=== PATIENT | female | born 1985 | race Caucasian/White ===

== ENCOUNTER 2019-12-04 11:10 | Emergency (ER) | payer SELFPAY ==
--- OUTSIDE RECORDS SUMMARY | 2019-12-04 11:12 | XMS REPORT | Summary of Care ---
:1985 Author Organization [facility] Address [address] [place] [id number] Care Team Providers Name Role Phone Pcp, Does Not Have A Primary Care Provider Reason for Visit Reason Comments UPPER RESPIRATORY INFECTION Encounter Details Date Type Department Care Team Description 10/01/2019 Telephone [facility] Family [facility], Acute Care UPPER RESPIRATORY Medicine - [facility] INFECTION [address] [place] [phone] Allergies No Known Allergiesdocumented as of this encounter (statuses as of 10/01/2019) Medications No known medicationsdocumented as of this encounter (statuses as of 10/01/2019) Active Problems Problem Noted Date Bipolar I disorder, most recent episode depressed 02/2008 Overview: ICD10 Diagnosis 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 documented as of this encounter Last Filed Vital Signs Not on filedocumented in this encounter Plan of Treatment Date Type Specialty Care Team Description 10/02/2019 Urgent Care [facility] Acute Care Clinic Health Maintenance Due Date Last Done Comments VARICELLA VACCINES (1 of 2 1986 - 2-dose childhood series) DTaP,Tdap,and Td Vaccines 1996 (1 - Tdap) PAP SMEAR 12/01/2011 11/30/2008, 04/10/2007, 05/13/2006, Additional history exists INFLUENZA VACCINE (#1) 2019 PNEUMOCOCCAL 0-64 YEARS Aged Out No longe r eligible COMBINED SERIES based on patient 's age to complete this topic documented as of this encounter Results Not on filedocumented in this encounter
--- OUTSIDE RECORDS SUMMARY | 2019-12-04 11:12 | XMS REPORT | Continuity of Care Document ---
:1985 Author Organization [facility] [place] t Address [address] [place] [address] Care Team Providers Name Role Phone Pob1, [facility] Attending Clinician Unavailable Problems This patient has no known problems. Allergies, Adverse Reactions, Alerts This patient has no known allergies or adverse reactions. Medications This patient has no known medications. Procedures This patient has no known procedures. Encounters Start End Encounter Admission Attending Care Care Encounter Source Date/Time Date/Time Type Type Clinicians Facility Department ID 2019-10-01 2019-10-01 Telephone Pob1, Acute [facility] [id number] 00:00:00 00:00:00 [facility] [id number] [place] [id number] [place] [phone] [address] 2018-12-18 2018-12-18 Emergency E [facility] [address] [facility] 06:20:00 06:20:00 Results This patient has no known results.
[2019-12-04 12:18] LABS: Absolute Lymphocytes (CBC) 0.9 K/uL (0.7-4.9); Basophils % 0.2 % (0-1.3); Hematocrit 39.1 % (36.0-45.0); Lymphocytes % 5.6 % (15.3-44.8); MPV 8.7 fL (7.6-11.3); RBC Red Blood Cell Count 4.39 M/uL (3.86-4.86)
[2019-12-04 12:22] LABS: Protime INR 1.16
[2019-12-04 12:35] LABS: ALT/SGPT 38 U/L (12-78); AST/SGOT 34 U/L (15-37); Albumin 3.1 g/dL (3.4-5.0); Alkaline Phosphatase 55 U/L (45-117); BUN Blood Urea Nitrogen 6 mg/dL (7-18); Bicarbonate 25 mmol/L (21-32); Bilirubin Direct 0.2 mg/dL (0-0.2); Bilirubin Total 0.6 mg/dL (0.2-1.0); Glucose Level 114 mg/dL (74-106); NT PRO-BNP 79 pg/mL (<125); Potassium 3.7 mmol/L (3.5-5.1); Protein, Total 6.8 g/dL (6.4-8.2); Sodium Level 131 mmol/L (136-145); Troponin (Emerg Dept Use Only) < 0.02 ng/mL (0.0-0.045)
[2019-12-04] MEDS ORDERED: NA CHLORIDE 0.9% 1,000 ML ONE ×2 (12:42→15:46)
--- NOTE | 2019-12-04 12:46 | RAD REPORT ---
EXAM DESCRIPTION: RAD - Chest Single View - 12/04/2019 12:42 pm CLINICAL HISTORY: CHEST PAIN COMPARISON: Two-view chest December 2011 TECHNIQUE: AP portable chest image was obtained 12/04/2019 12:42 pm . FINDINGS: Lungs are clear. Heart and vasculature are normal. No measurable pleural effusion and no p neumothorax. No acute bony abnormality seen. No acute aortic findings suspected. IMPRESSION: No acute cardiopulmonary process.
[2019-12-04 13:12] LABS: Platelet Estimate ADEQ; Urine White Blood Cell Casts OK
[2019-12-04] MEDS ORDERED: ONDANSETRON 4 MG/2 ML VIAL ONE (13:12)
[2019-12-04] MEDS ORDERED: MORPHINE 4 MG/ML SYR ONE (13:12)
[2019-12-04 13:13] LABS: Blood Morphology Comment NOT SEEN (NOT SEEN)
--- NOTE | 2019-12-04 14:27 | RAD REPORT ---
EXAM DESCRIPTION: CT - Angio Aorta For Dissection - 12/04/2019 1:39 pm CLINICAL HISTORY: Left flank pain;Chest pain COMPARISON: None. TECHNIQUE: Dynamically enhanced 3 mm thick images of the chest, abdomen, and upper pelvis were obtai fallon during administration of approximately 150mL Isovue 370 IV contrast. Sagittal and coronal reconst ruction images were generated using MIP and reviewed. Exam utilizes a protocol to evaluate entire cou rse of the aorta. All CT scans are performed using dose optimization technique as appropriate and may include automated exposure control or mA/KV adjustment according to patient size. FINDINGS: Exam has significant motion degradation artifacts. Aorta is normal in diameter with no dissection or other acute aortic findings. Reconstruction images show no significant findings. Pulmonary arteries are normal as well. No cardiomegaly, pericardial thickening or pericardial effusio n. No mass, infiltrate or other acute lung parenchymal process. No pleural thickening, pleural effusion or pneumothorax. No abnormal mediastinal or hilar mass or lymphadenopathy seen. No chest wall mass or abnormal axillar y lymphadenopathy. Celiac, SMA and renal arteries show no suspicious findings. The liver, spleen and pancreas show no biswas spicious finding. No gallbladder or biliary tree abnormality. Heterogeneous, diminished enhancement i s seen in the upper pole of the left kidney. This is a pattern typical for pyelonephritis and needs c orrelation with clinical presentation. Butts of the large extrarenal pelvis on the left also thickene d with low level enhancement. Pain large left kidney is incompletely rotated. This places the ureter in proximity to bowel loops. The ureter is poorly visualized along its entire course. There are phleb oliths present in the pelvis but no convincing evidence for ureteral calculus. Moderate stool volume fills the entirety of the colon. No acute bowel obstruction. No free air, free fluid or inflammatory stranding. No urinary bladder abnormality. Uterus and ovaries show no suspicio us findings. IMPRESSION: Abnormal enhancement pattern in the upper pole of the left kidney most likely pyelonephr itis. Ureteritis the left collecting system also suspected. No obstructing calculus confirmed. No abnormality of the aorta or pulmonary arterial tree. Moderately large stool volume is present filling the entirety of the colon. No obstruction, free air or emergent GI finding. No other significant findings on chest, abdomen and upper pelvis examination.
[2019-12-04 15:29] LABS: Barbiturates NEGATIVE (NEGATIVE); Benzodiazepines NEGATIVE (NEGATIVE); Cocaine NEGATIVE (NEGATIVE); METHAMPHETAM POSITIVE (NEGATIVE); Methadone NEGATIVE (NEGATIVE); Opiates NEGATIVE (NEGATIVE); Phencyclidine NEGATIVE (NEGATIVE); THC Cannibis POSITIVE (NEGATIVE)
[2019-12-04 15:30] LABS: Urine Blood 2+ (NEG); Urine Glucose NEGATIVE (NEG); Urine Protein 2+ (NEG)
[2019-12-04 15:38] LABS: Urine Bacteria >50 /HPF (<20); Urine Culture Reflex Order REFLEXED
[2019-12-04] MEDS ORDERED: CEFTRIAXONE/SWI 1gm 1 GM/10 ML SYR ONE (15:46)
[2019-12-04] MEDS ORDERED: FENTANYL CITR 100 MCG/2 ML ONE (15:47)
--- NOTE | 2019-12-04 15:56 | ER ---
Nurse's Notes [facility] Name: Shani Delgado Age: 34 yrs Sex: Female : 1985 Arrival Date: 12/04/2019 Time: 11:13 Bed 13 Private MD: Diagnosis: Urinary tract infection, site not specified-left sided pyelonephritis Presentation: 12/03 11:13 Chief complaint: Patient states: "It started in my kidney's now my head hurts and my ss chest hurts and you can't even touch my skin it hurts so bad." Pt reports symptoms began 2 days ago and became worse last night. Coronavirus screen: Proceed with normal triage. Patient denies a cough. Patient denies shortness of breath or difficulty breathing. Patient denies measured and/or subjective temperature greater than 100.4F prior to today's visit. Patient denies travel on a cruise ship or to a country the [facility] currently lists as an affected area. Patient denies contact with known and/or suspected case of COVID-19. Ebola Screen: Patient denies exposure to infectious person. Patient denies travel to an Ebola-affected area in the 21 days before illness onset. Initial Sepsis Screen: Does the patient meet any 2 criteria? No. Patient's initial sepsis screen is negative. Does the patient have a suspected source of infection? No. Patient's initial sepsis screen is negative. Risk Assessment: Do you want to hurt yourself or someone else? Patient reports no desire to harm self or others. Onset of symptoms was December 02, 2019. 11:13 Method Of Arrival: Ambulatory ss 11:13 Acuity: MACIEL 3 ss Historical: - Allergies: 11:16 No Known Allergies; ss - Home Meds: 11:16 None [Active]; ss - PMHx: 11:16 None; ss - PSHx: 11:16 None; ss - Immunization history:: Adult Immunizations up to date. - Social history:: Smoking status: Patient reports the use of cigarette tobacco products, smokes one-half pack cigarettes per day, Patient uses "speed" occasionally. Last use was reported to be months ago. Screenin:31 Abuse screen: Denies threats or abuse. Nutritional screening: No deficits noted. ll1 Tuberculosis screening: No symptoms or risk factors identified. Fall Risk IV access (20 points). Ambulatory Aid- Crutches/Cane/Walker (15 pts). Gait- Weak (10 pts.). Total Garcia Fall Scale indicates High Risk Score (45 or more points). Fall prevention measures have been instituted. Side Rails Up X 2 Frequent Obs/Assessments Occuring As available patient and family educated on Fall Prevention Program and Strategies. Assessment: 12:00 General: Appears distressed, Behavior is anxious, restless. Pain: Complains of pain in ll1 "head, chest, kidneys" Pain currently is 10 out of 10 on a pain scale. Quality of pain is described as aching, throbbing, Pain began 2-3 days ago. Is continuous. Neuro: Level of Consciousness is awake, alert, obeys commands, Oriented to person, place, time, situation, Structural Architect are equal bilaterally Gait is steady, Speech is normal, Facial symmetry appears normal, Reports headache in entire. Cardiovascular: Reports chest pain, Heart tones S1 S2 Capillary refill < 3 seconds Clubbing of nail beds is absent JVD is absent Patient's skin is warm and dry. Pulses are all present. Rhythm is sinus tachycardia Chest pain. Respiratory: No deficits noted. GI: Abdomen is flat, Bowel sounds present X 4 quads. : Reports burning with urination, low back pain "kidney" pain. 14:00 Pain: Pain radiates to left low back. vc 14:01 Reassessment: No changes from previously documented assessment. Patient and/or family ll1 updated on plan of care and expected duration. Pain level reassessed. Patient is alert, oriented x 3, equal unlabored respirations, skin warm/dry/pink. refused morphine and zofran. Rigoberto Jackson, informed. 14:01 Reassessment:. vc 15:00 Reassessment: Patient appears in no apparent distress at this time. Patient and/or vc family updated on plan of care and expected duration. Pain level reassessed. Patient states symptoms have not improved. 16:00 Reassessment: Patient appears in no apparent distress at this time. Patient and/or vc family updated on plan of care and expected duration. Pain level reassessed. Patient states symptoms have not improved. 17:02 Reassessment: Patient appears in no apparent distress at this time. Patient and/or vc family updated on plan of care and expected duration. Pain level reassessed. Discharge pending, fluids infusing. Patient laying with eyes closed resting, chest rising up and down equally. Vital Signs: 11:13 BP 109 / 70; Pulse 112; Resp 20; Temp 98.7(O); Pulse Ox 100% on R/A; Weight 54.43 kg; ss Height 5 ft. 4 in. (162.56 cm); Pain 10/10; 12:32 BP 121 / 69; Pulse 100; Resp 18; Pulse Ox 100% ; ll1 13:00 BP 113 / 83; Pulse 104; Resp 17; Pulse Ox 100% ; ll1 13:45 BP 107 / 70; Pulse 109; Resp 18; Pulse Ox 100% ; ll1 14:30 BP 107 / 72; Pulse 109; Resp 20; Pulse Ox 100% on R/A; vc 15:30 BP 118 / 85; Pulse 111; Resp 20; Pulse Ox 100% on R/A; vc 16:30 BP 98 / 62; Pulse 105; Resp 25; Pulse Ox 100% on R/A; vc 17:15 BP 96 / 68; Pulse 112; Resp 22; Pulse Ox 100% on R/A; vc 11:13 Body Mass Index 20.60 (54.43 kg, 162.56 cm) ED Course: 11:13 Patient arrived in ED. ss 11:15 Triage completed. ss 11:16 Arm band placed on right wrist. ss 11:52 Donell Jackson NP is PHCP. pm1 11:52 David Bell MD is Attending Physician. pm1 12:01 Juan Miguel Mora RN is Primary Nurse. ll1 12:16 Inserted saline lock: 20 gauge in right antecubital area, using aseptic technique. ll1 Blood collected. 12:32 Patient has correct armband on for positive identification. Bed in low position. Call ll1 light in reach. Side rails up X2. cafeteria monitor on. Pulse ox on. NIBP on. 12:42 XRAY Chest (1 view) In Process Unspecified. EDMS 13:39 CT completed. Patient moved back from CT. bq 13:39 CT Aorta for Dissection In Process Unspecified. EDMS 14:01 Report received from Juan Miguel Mora RN. vc 17:35 No provider procedures requiring assistance completed. IV discontinued, intact, vc bleeding controlled, No redness/swelling at site. Pressure dressing applied. Patient maintains SpO2 saturation greater than 95% on room air. Administered Medications: 12:40 Drug: NS 0.9% 1000 ml Route: IV; Rate: 1000 ml; Site: right antecubital; ll1 15:55 Drug: Rocephin 1 grams Route: IV; Rate: calculated rate; Site: right antecubital; vc 15:55 Drug: NS 0.9% 1000 ml Route: IV; Rate: 1000 ml; Site: right antecubital; vc 16:00 Drug: [place] 10 mg-325 mg 1 tabs Route: PO; vc 16:01 Drug: Cipro 500 mg Route: PO; vc 17:30 Not Given (Patient Refused): fentaNYL (PF) 50 mcg IVP once; RASS on ADMIN: Combtv4, vc Very Agttd3, Agttd2, Rstlss1, AlertClm0, Drwsy-1, Lt Sdtn-2, Mod Sdtn-3, Dp Sdtn-4, UnArsble-5 17:32 Not Given (Patient Refused): Zofran (Ondansetron) 4 mg IVP once; over 2 minutes vc 17:34 Not Given (Patient Refused): morphine 4 mg IVP once; RASS on ADMIN: Combtv4, Very vc Agttd3, Agttd2, Rstlss1, AlertClm0, Drwsy-1, Lt Sdtn-2, Mod Sdtn-3, Dp Sdtn-4, UnArsble-5 Outcome: 15:55 Discharge ordered by MD. pm1 17:35 Patient left the ED. vc 17:35 Discharged to home via wheelchair. vc 17:35 Condition: improved 17:35 Discharge instructions given to patient, Instructed on discharge instructions, follow up and referral plans. medication usage, Demonstrated understanding of instructions, follow-up care, medications, Prescriptions given X 2. 17:35 Prescriptions given X 3. Addendum: 12/07/2019 08:30 Addendum: Culture Results: Positive urine culture. No further action required. Bacteria i w sensitive to prescribed antibiotic. Signatures: Dispatcher [employer] EDMS Dulce Wong Irene, RN RN iw Smirch, Shelby, RN RN ss Donell Jackson, SYSTEM SOFTWARE PROGRAMMER SYSTEM SOFTWARE PROGRAMMER pm1 Calcote, Amber, RN RN vc Morgan, Lynsay, RN RN ll1 Corrections: (The following items were deleted from the chart) 12/04 02:38 12/03 17:02 Reassessment: Discharge pending, fluids infusing. vc vc
--- NOTE | 2019-12-04 15:56 | EDPHYS ---
Physician Documentation [facility] Name: Shani Delgado Age: 34 yrs Sex: Female : 1985 Arrival Date: 12/04/2019 Time: 11:13 Bed 13 Private MD: ED Physician David Bell HPI: 12/03 12:06 This 34 yrs old Female presents to ER via Ambulatory with complaints of Chest pm1 Pain, Headache, Skin Problem. 12:06 The patient or guardian reports chest pain that is located primarily in the mid-sternal pm1 area. The pain does not radiate. Associated signs and symptoms: Pertinent positives: left flank pain, skin sensitivity, Pertinent negatives: abdominal pain, cough, diaphoresis, dizziness, nausea, shortness of breath, vomiting. The chest pain is described as sharp. Duration: The patient or guardian reports a single episode, that is still ongoing, and worsening. Modifying factors: The symptoms are alleviated by nothing. the symptoms are aggravated by nothing. Severity of pain: in the emergency department the pain is actually worse. The patient has not experienced similar symptoms in the past. The patient has not recently seen a physician. Patient reports onset of left flank pain yesterday with some mild burning with urination. Then patient reports chest pain and headache last night. Historical: - Allergies: 11:16 No Known Allergies; ss - Home Meds: 11:16 None [Active]; ss - PMHx: 11:16 None; ss - PSHx: 11:16 None; ss - Immunization history:: Adult Immunizations up to date. - Social history:: Smoking status: Patient reports the use of cigarette tobacco products, smokes one-half pack cigarettes per day, Patient uses "speed" occasionally. Last use was reported to be months ago. ROS: 12:06 Constitutional: Negative for fever, chills, and weight loss, Eyes: Negative for injury, pm1 pain, redness, and discharge, ENT: Negative for injury, pain, and discharge, Neck: Negative for injury, pain, and swelling. 12:06 Respiratory: Negative for shortness of breath, cough, wheezing, and pleuritic chest pain, Abdomen/GI: Negative for abdominal pain, nausea, vomiting, diarrhea, and constipation. 12:06 MS/Extremity: Negative for injury and deformity, Skin: Negative for injury, rash, and discoloration. 12:06 Cardiovascular: Positive for chest pain, Negative for edema, orthopnea, palpitations. 12:06 Back: Positive for flank pain, on the left. 12:06 : Positive for burning with urination. 12:06 Neuro: Positive for headache, Negative for dizziness, numbness, tingling, weakness. Exam: 12:06 Constitutional: This is a well developed, well nourished patient who is awake, alert, pm1 and in no acute distress. Head/Face: Normocephalic, atraumatic. Eyes: Pupils equal round and reactive to light, extra-ocular motions intact. Lids and lashes normal. Conjunctiva and sclera are non-icteric and not injected. Cornea within normal limits. Periorbital areas with no swelling, redness, or edema. ENT: Nares patent. No nasal discharge, no septal abnormalities noted. Tympanic membranes are normal and external auditory canals are clear. Oropharynx with no redness, swelling, or masses, exudates, or evidence of obstruction, uvula midline. Mucous membranes moist. Neck: Trachea midline, no thyromegaly or masses palpated, and no cervical lymphadenopathy. Supple, full range of motion without nuchal rigidity, or vertebral point tenderness. No Meningismus. 12:06 Abdomen/GI: Soft, non-tender. No guarding or rebound. No evidence of tenderness throughout. 12:06 Skin: Warm, dry with normal turgor. Normal color with no rashes, no lesions, and no evidence of cellulitis. MS/ Extremity: Pulses equal, no cyanosis. Neurovascular intact. Full, normal range of motion. 12:06 Chest/axilla: Inspection: normal, Palpation: crepitus, is not appreciated, tenderness, of the mid-sternal area, that totally reproduces the patient's complaints. 12:06 Cardiovascular: Exam negative for acute changes, Rate: tachycardic, actual rate is 112 bpm, Rhythm: regular, Pulses: Edema: is not appreciated. 12:06 Respiratory: Exam negative for acute changes, respiratory distress, shortness of breath. 12:06 Back: pain, that is very mild, of the left low back, normal spinal alignment noted. 12:06 Neuro: Exam negative for acute changes, Orientation: is normal, Mentation: is normal, Motor: is normal, moves all fours. Vital Signs: 11:13 BP 109 / 70; Pulse 112; Resp 20; Temp 98.7(O); Pulse Ox 100% on R/A; Weight 54.43 kg; ss Height 5 ft. 4 in. (162.56 cm); Pain 10/10; 12:32 BP 121 / 69; Pulse 100; Resp 18; Pulse Ox 100% ; ll1 13:00 BP 113 / 83; Pulse 104; Resp 17; Pulse Ox 100% ; ll1 13:45 BP 107 / 70; Pulse 109; Resp 18; Pulse Ox 100% ; ll1 14:30 BP 107 / 72; Pulse 109; Resp 20; Pulse Ox 100% on R/A; vc 15:30 BP 118 / 85; Pulse 111; Resp 20; Pulse Ox 100% on R/A; vc 16:30 BP 98 / 62; Pulse 105; Resp 25; Pulse Ox 100% on R/A; vc 17:15 BP 96 / 68; Pulse 112; Resp 22; Pulse Ox 100% on R/A; vc 11:13 Body Mass Index 20.60 (54.43 kg, 162.56 cm) ss MDM: 11:55 Patient medically screened. pm1 14:22 Data reviewed: vital signs. Data interpreted: Pulse oximetry: on room air is 100 %. pm1 Interpretation: normal. 15:52 Counseling: I had a detailed discussion with the patient and/or guardian regarding: the pm1 historical points, exam findings, and any diagnostic results supporting the discharge/admit diagnosis, lab results, radiology results, the need for outpatient follow up, a family practitioner, to return to the emergency department if symptoms worsen or persist or if there are any questions or concerns that arise at home. 15:52 ED course: Patient refused morphine and fentanyl for pain. Requested hydrocodone. She pm1 did not want IV pain medication in the ER, just wants PO narcotic if possible. 12/03 11:56 Order name: Basic Metabolic Panel pm1 12/03 11:56 Order name: CBC with Diff pm1 12/03 11:56 Order name: LFT's; Complete Time: 12:48 pm1 12/03 11:56 Order name: Magnesium; Complete Time: 12:48 pm1 12/03 11:56 Order name: NT PRO-BNP; Complete Time: 12:48 pm1 12/03 11:56 Order name: PT-INR; Complete Time: 12:31 pm1 12/03 11:56 Order name: Troponin (emerg Dept Use Only); Complete Time: 12:48 pm1 12/03 11:56 Order name: UDS; Complete Time: 15:34 pm1 12/03 11:56 Order name: D-Dimer; Complete Time: 12:31 pm1 12/03 11:56 Order name: Basic Metabolic Panel; Complete Time: 12:48 EDLA 12/03 11:56 Order name: CBC with Automated Diff; Complete Time: 13:23 EDLA 12/03 12:20 Order name: Urine Microscopic Only; Complete Time: 15:42 pm1 12/03 13:13 Order name: CBC Smear Scan; Complete Time: 13:23 EDLA 12/03 14:54 Order name: Urine Dipstick--Ancillary (enter results); Complete Time: 15:34 12/03 11:29 Order name: EKG; Complete Time: 11:30 12/03 11:29 Order name: EKG - Nurse/Tech; Complete Time: 11:29 12/03 11:56 Order name: XRAY Chest (1 view); Complete Time: 12:48 pm1 12/03 11:56 Order name: Cardiac monitoring; Complete Time: 12:14 pm1 12/03 11:56 Order name: IV Saline Lock; Complete Time: 12:14 pm1 12/03 12:33 Order name: CT Aorta for Dissection; Complete Time: 14:31 pm1 12/03 14:54 Order name: Urine --Ancillary (enter results); Complete Time: 15:34 12/03 15:40 Order name: Urine Culture [facility] 12/03 11:56 Order name: Labs collected and sent; Complete Time: 12:14 pm1 12/03 11:56 Order name: O2 Per Protocol; Complete Time: 12:14 pm1 12/03 11:56 Order name: O2 Sat Monitoring; Complete Time: 12:13 pm1 12/03 11:56 Order name: Urine Dipstick-Ancillary (obtain specimen); Complete Time: 15:13 pm1 12/03 11:56 Order name: Urine Test (obtain specimen); Complete Time: 15:13 pm1 Administered Medications: 12:40 Drug: NS 0.9% 1000 ml Route: IV; Rate: 1000 ml; Site: right antecubital; ll1 15:55 Drug: Rocephin 1 grams Route: IV; Rate: calculated rate; Site: right antecubital; vc 15:55 Drug: NS 0.9% 1000 ml Route: IV; Rate: 1000 ml; Site: right antecubital; vc 16:00 Drug: [place] 10 mg-325 mg 1 tabs Route: PO; vc 16:01 Drug: Cipro 500 mg Route: PO; vc 17:30 Not Given (Patient Refused): fentaNYL (PF) 50 mcg IVP once; RASS on ADMIN: Combtv4, vc Very Agttd3, Agttd2, Rstlss1, AlertClm0, Drwsy-1, Lt Sdtn-2, Mod Sdtn-3, Dp Sdtn-4, UnArsble-5 17:32 Not Given (Patient Refused): Zofran (Ondansetron) 4 mg IVP once; over 2 minutes vc 17:34 Not Given (Patient Refused): morphine 4 mg IVP once; RASS on ADMIN: Combtv4, Very vc Agttd3, Agttd2, Rstlss1, AlertClm0, Drwsy-1, Lt Sdtn-2, Mod Sdtn-3, Dp Sdtn-4, UnArsble-5 Disposition: 17:55 Co-signature as Attending Physician, David Bell MD. rn Disposition: 12/04/19 15:55 Discharged to Home. Impression: Urinary tract infection, site not specified - left sided pyelonephritis. - Condition is Stable. - Discharge Instructions: Pyelonephritis, Adult, Urinary Tract Infection, Adult. - Prescriptions for Tylenol- Codeine #3 300-30 mg Oral Tablet - take 2 tablets by ORAL route every 6 hours As needed; 20 tablet. Zofran 4 mg Oral Tablet - take 1 tablet by ORAL route every 12 hours As needed; 20 tablet. Cipro 500 mg Oral Tablet - take 1 tablet by ORAL route every 12 hours for 10 days; 20 tablet. - Medication Reconciliation Form, Thank You Letter, Antibiotic Education, Prescription Opioid Use form. - Follow up: Private Physician; When: 2 - 3 days; Reason: Recheck today's complaints, Continuance of care, Re-evaluation by your physician. Follow up: Emergency Department; When: As needed; Reason: Worsening of condition. - Problem is new. - Symptoms have improved. Signatures: Dispatcher [employer] EDMS David Bell MD MD rn Smirch, Shelby, RN RN ss Donell Jackson, CHIEF CONTRACT OFFICER CHIEF CONTRACT OFFICER pm1 Amber Posey RN RN vc Lewis, Lynsay, RN RN ll1 Corrections: (The following items were deleted from the chart) 17:35 15:55 12/04/2019 15:55 Discharged to Home. Impression: Urinary tract infection, site vc not specified - left sided pyelonephritis. Condition is Stable. Forms are Medication Reconciliation Form, Thank You Letter, Antibiotic Education, Prescription Opioid Use. Follow up: Private Physician; When: 2 - 3 days; Reason: Recheck today's complaints, Continuance of care, Re-evaluation by your physician. Follow up: Emergency Department; When: As needed; Reason: Worsening of condition. Problem is new. Symptoms have improved. pm1
[2019-12-04] MEDS ORDERED: HYDROCODONE/APAP 10/325 TAB ONE (15:59)
[2019-12-04] MEDS ORDERED: CIPROFLOXACIN HCL 500 MG TAB ONE (16:07)
[2019-12-04 17:43] VITALS: TEMP 98.7; O2SAT 100
[2019-12-04 17:47] VITALS: BP 107/70
--- NOTE | 2019-12-06 07:48 | EKG ---
Test Date: 2019-12-04 Test Time: 11:21:50 Manager Ui: MARC MEASUREMENT RESULTS: Intervals: Rate: 109 CA: 96 QRSD: 78 QT: 304 QTc: 409 [place]: P: 78 CA: 96 QRS: 89 T: 70 INTERPRETIVE STATEMENTS: Sinus tachycardia with short CA Otherwise normal ECG Compared to ECG 01/25/2012 15:40:08 Short CA interval now present Sinus rhythm no longer present Atrial abnormality no longer present Electronically Signed On 12-06-19 07:44:59 CDT by Pablito Farah
== END 2019-12-04 17:35 | disposition home or self-care (01) ==
LOC: ER 11:10
DX: N39.0 Urinary tract infection, site not specified (principal); N12 Tubulo-interstitial nephritis, not specified as acute or chronic; F17.210 Nicotine dependence, cigarettes, uncomplicated
CPT/HCPCS: 36415; 71045; 71275; 74175; 80048; 80076; 80307; 81003; 81015; 81025; 83735; 83880; 84484; 85025; 85379; 85610; 87077; 87086; 87088; 87186; 93005; 96374; 99285; J0696; J2405; J3010; J7030; Q9967

== ENCOUNTER 2019-12-05 08:59 | Inpatient (IN) | payer SELFPAY ==
--- OUTSIDE RECORDS SUMMARY | 2019-12-05 09:02 | XMS REPORT | Continuity of Care Document ---
:1985 Author Organization [facility] t Address [address] [place] [address] Care Team Providers Name Role Phone Pob1, [facility] Attending Clinician Unavailable Problems This patient has no known problems. Allergies, Adverse Reactions, Alerts This patient has no known allergies or adverse reactions. Medications This patient has no known medications. Procedures This patient has no known procedures. Encounters Start End Encounter Admission Attending Care Care Encounter Source Date/Time Date/Time Type Type Clinicians Facility Department ID 2019-10-01 2019-10-01 Telephone Pob1, Acute [facility] [id number] 00:00:00 00:00:00 [facility] [id number] [place] [id number] [place] [id number] [address]al [address] 2018-12-18 2018-12-18 Emergency E [facility] [address] [facility] 06:20:00 06:20:00 Results This patient has no known results.
[2019-12-05] MEDS ORDERED: NA CHLORIDE 0.9% 1,000 ML ONE (09:18)
[2019-12-05] MEDS ORDERED: HYDROCODONE/APAP 5/325 MG TAB ONE (09:18)
[2019-12-05 09:34] LABS: Absolute Lymphocytes (CBC) 1.3 K/uL (0.7-4.9); Basophils % 0.2 % (0-1.3); Hematocrit 35.8 % (36.0-45.0); MPV 8.5 fL (7.6-11.3); RBC Red Blood Cell Count 4.02 M/uL (3.86-4.86)
[2019-12-05 10:50] LABS: Urine Blood 3+ (NEG); Urine Glucose NEGATIVE (NEG); Urine Protein 2+ (NEG)
[2019-12-05] MEDS ORDERED: METOCLOPRAMIDE 10 MG/2mL INJ ONE (11:01)
[2019-12-05 11:06] LABS: CSF Glucose 63 mg/dL (40-70)
[2019-12-05 12:07] LABS: Appearance CLEAR (CLEAR); Body Fluid Source CSF; Color of fluid Colorless (COLORLESS); Fluid Total Volume 4.5 ml
[2019-12-05 12:09] LABS: Body Fluid WBC 1 /mm^3
[2019-12-05 12:16] LABS: Appearance CLEAR (CLEAR); Body Fluid Source CSF; Color of fluid Colorless (COLORLESS)
[2019-12-05 12:17] LABS: Body Fluid WBC 0 /mm^3
--- NOTE | 2019-12-05 12:28 | ER ---
Nurse's Notes [facility] Name: Shani Delgado Age: 34 yrs Sex: Female : 1985 Arrival Date: 12/05/2019 Time: 09: Bed 8 Private MD: Diagnosis: Acute pyelonephritis Presentation: 12/04 09:01 Chief complaint: EMS states: Pt c/o low back pain and headache, seen in ED yesterday for the same complaint but was unable to get prescriptions filled, VSS, 112/71, 79 HR, 98% RA. Coronavirus screen: Patient denies a cough. Patient denies shortness of breath or difficulty breathing. Patient denies measured and/or subjective temperature greater than 100.4F prior to today's visit. Patient denies travel on a cruise ship or to a country the [facility] currently lists as an affected area. Patient denies contact with known and/or suspected case of COVID-19. Ebola Screen: No symptoms or risks identified at this time. Initial Sepsis Screen: Does the patient meet any 2 criteria? No. Patient's initial sepsis screen is negative. Does the patient have a suspected source of infection? Yes: Dysuria/Frequency/Urgency/UTI. Risk Assessment: Do you want to hurt yourself or someone else? Patient reports no desire to harm self or others. Onset of symptoms was December 05, 2019. 09:01 Method Of Arrival: EMS: [facility] 09:01 Acuity: MACIEL 3 ph Historical: - Allergies: 09:04 Alprazolam; ph - Home Meds: 09:04 None [Active]; ph - PMHx: 09:04 None; ph - PSHx: 09:04 None; ph - Immunization history:: Adult Immunizations unknown. - Family history:: not pertinent. - Hospitalizations: : No recent hospitalization is reported. Screenin:04 Abuse screen: Denies threats or abuse. Denies injuries from another. Nutritional ph screening: No deficits noted. Tuberculosis screening: No symptoms or risk factors identified. Fall Risk None identified. Assessment: 09:15 General: Appears in no apparent distress. uncomfortable, Behavior is cooperative, em crying, fussy, Reports "chills and sweating all night" Denies fever. Pain: Complains of pain in "all over" Pain currently is 10 out of 10 on a pain scale. Neuro: Level of Consciousness is awake, alert, obeys commands, Oriented to person, place, time, situation, Appropriate for age Reports headache. Cardiovascular: Capillary refill < 3 seconds Patient's skin is warm and dry. Respiratory: Airway is patent Respiratory effort is even, unlabored, Respiratory pattern is regular, symmetrical. GI: Abdomen is flat, Patient currently denies nausea, vomiting. : Reports vaginal bleeding that is moderate flow, since yesterday. Derm: Skin is intact, is healthy with good turgor, Skin is pink, warm \\T\\ dry. Musculoskeletal: Capillary refill < 3 seconds, Range of motion: intact in all extremities. 10:20 Reassessment: Patient appears in no apparent distress at this time. pt ambulated to em restroom, reports having bloody urine, provider notified. 11:17 Reassessment: Patient appears in no apparent distress at this time. Patient and/or em family updated on plan of care and expected duration. Pain level reassessed. Patient is alert, oriented x 3, equal unlabored respirations, skin warm/dry/pink. 12:01 Reassessment: Patient appears in no apparent distress at this time. Patient and/or em family updated on plan of care and expected duration. Pain level reassessed. Patient is alert, oriented x 3, equal unlabored respirations, skin warm/dry/pink. 12:58 Reassessment: Patient appears in no apparent distress at this time. Patient and/or em family updated on plan of care and expected duration. Pain level reassessed. Patient is alert, oriented x 3, equal unlabored respirations, skin warm/dry/pink. 14:00 Reassessment: Patient appears in no apparent distress at this time. Patient and/or em family updated on plan of care and expected duration. Pain level reassessed. Patient is alert, oriented x 3, equal unlabored respirations, skin warm/dry/pink. pt ambulated to the restroom, reports headache, provider notified, no new orders received. 14:40 Reassessment: nurse unavailable to receive report at this time. em 14:53 Reassessment: hospitalist at bedside. em Vital Signs: 09:01 BP 111 / 79; Pulse 91; Resp 18; Temp 97.8; Pulse Ox 100% on R/A; Weight 54.43 kg; ph 10:04 BP 102 / 80; Pulse 86; Resp 16; Pulse Ox 100% on R/A; em 11:17 BP 107 / 68; Pulse 76; Resp 18; Temp 98.7(O); Pulse Ox 100% on R/A; Pain 10/10; em 12:00 BP 97 / 65; Pulse 76; Resp 16; Pulse Ox 100% on R/A; em 13:00 BP 112 / 71; Pulse 73; Resp 16; Pulse Ox 99% on R/A; em 14:40 BP 108 / 67; Pulse 67; Resp 16; Pulse Ox 99% on R/A; Pain 10/10; em ED Course: 09:01 Patient arrived in ED. ph 09:01 David Bell MD is Attending Physician. rn 09:03 Triage completed. ph 09:04 Patient has correct armband on for positive identification. Bed in low position. Call ph light in reach. Side rails up X 1. Pulse ox on. NIBP on. Door closed. Noise minimized. Lights dimmed. Warm blanket given. 09:04 Arm band placed on Patient placed in an exam room. ph 09:08 Javy Nance, RN is Primary Nurse. em 09:20 Initial lab(s) drawn, by me, sent to lab. Inserted saline lock: 20 gauge in right em antecubital area, using aseptic technique. Blood collected. 10:28 Consent for a lumbar puncture explained by physician, signed by patient. em 10:38 Assist provider with lumbar puncture: Set up LP tray. Performed by David Bell MD CSF em is clear. Puncture site dressed with band aid, Procedure was successful. Patient tolerated well. 12:27 Femi Valdes MD is Hospitalizing Provider. rn 15:09 Patient admitted, IV remains in place. em Administered Medications: 09:27 Drug: NS 0.9% 1000 ml Route: IV; Rate: 1000 ml; Site: right antecubital; em 11:30 Follow up: IV Status: Completed infusion; IV Intake: 1000ml em 09:27 Drug: [place] 5 mg-325 mg 1 tabs Route: PO; em 11:23 Follow up: Response: No adverse reaction; Pain is unchanged, physician notified; RASS: em Drowsy (-1) 11:07 Drug: Reglan 10 mg Route: IVP; Site: right antecubital; em 13:36 Follow up: Response: No adverse reaction em Intake: 11:30 IV: 1000ml; Total: 1000ml. em Outcome: 12:28 Decision to Hospitalize by Provider. rn 15:26 Admitted to Med/surg accompanied by tech, via wheelchair, room 222, with chart, Report em called to DAKOTA Regalado 15:26 Condition: good 15:26 Instructed on the need for admit, Demonstrated understanding of instructions. 15:30 Patient left the ED. em Signatures: Javy Nance, RN RN David Earl MD MD rn Hall, Patricia, RN RN ph
--- NOTE | 2019-12-05 12:29 | EDPHYS ---
Physician Documentation [facility] Name: Shani Delgado Age: 34 yrs Sex: Female : 1985 Arrival Date: 12/05/2019 Time: 09:01 Bed 8 Private MD: ED Physician David Bell HPI: 12/04 09:25 This 34 yrs old Female presents to ER via EMS with complaints of Headache, rn Low Back Pain. 09:25 The patient complains of pain in the left mid back. The pain does not radiate. Onset: rn The symptoms/episode began/occurred yesterday. Modifying factors: The symptoms are alleviated by nothing. the symptoms are aggravated by movement. Severity of pain: At its worst the pain was moderate in the emergency department the pain is unchanged. The patient has not experienced similar symptoms in the past. The patient has been recently seen by a physician: The patient has been recently seen at the [facility] Emergency Department, yesterday. Reports diagnosed with pyelonephritis yesterday, discharged with medication but unable to fill it, worse today, + total body aches, headache, and left flank pain. No vomiting. . Historical: - Allergies: 09:04 Alprazolam; ph - Home Meds: 09:04 None [Active]; ph - PMHx: 09:04 None; ph - PSHx: 09:04 None; ph - Immunization history:: Adult Immunizations unknown. - Family history:: not pertinent. - Hospitalizations: : No recent hospitalization is reported. ROS: 09:25 Constitutional: Negative for fever, chills, and weight loss, Eyes: Negative for injury, rn pain, redness, and discharge, Neck: Negative for injury, pain, and swelling, Cardiovascular: Negative for chest pain, palpitations, and edema, Respiratory: Negative for shortness of breath, cough, wheezing, and pleuritic chest pain, Abdomen/GI: Negative for abdominal pain, nausea, vomiting, diarrhea, and constipation, Back: + left flank pain MS/Extremity: Negative for injury and deformity, Skin: Negative for injury, rash, and discoloration, Neuro: + headache and generalized weakness Exam: 09:25 Constitutional: Thin female, moaning and crying, drinking water Head/Face: rn Normocephalic, atraumatic. ENT: MMM Neck: Trachea midline, no thyromegaly or masses palpated, and no cervical lymphadenopathy. Supple, full range of motion without nuchal rigidity, or vertebral point tenderness. No Meningismus. Cardiovascular: Regular rate and rhythm. No pulse deficits. Respiratory: No increased work of breathing, no retractions or nasal flaring. Abdomen/GI: Soft, non-tender Back: No spinal tenderness. + left CVAT Skin: Warm, dry with normal turgor. Normal color with no rashes, no lesions, and no evidence of cellulitis. MS/ Extremity: Pulses equal, no cyanosis. Neurovascular intact. Full, normal range of motion. Equal circumference. Neuro: Awake and alert, GCS 15, oriented to person, place, time, and situation. Cranial nerves II-XII grossly intact. Motor strength 5/5 in all extremities. Sensory grossly intact. Cerebellar exam normal. Normal gait. Vital Signs: 09:01 BP 111 / 79; Pulse 91; Resp 18; Temp 97.8; Pulse Ox 100% on R/A; Weight 54.43 kg; ph 10:04 BP 102 / 80; Pulse 86; Resp 16; Pulse Ox 100% on R/A; em 11:17 BP 107 / 68; Pulse 76; Resp 18; Temp 98.7(O); Pulse Ox 100% on R/A; Pain 10/10; em 12:00 BP 97 / 65; Pulse 76; Resp 16; Pulse Ox 100% on R/A; em 13:00 BP 112 / 71; Pulse 73; Resp 16; Pulse Ox 99% on R/A; em 14:40 BP 108 / 67; Pulse 67; Resp 16; Pulse Ox 99% on R/A; Pain 10/10; em Procedures: 10:40 Lumbar Puncture: Patient placed in left lateral decubitus position. Prepped with rn Betadine. Draped using sterile technique. Collected 5 ml's of clear fluid. Sample sent to lab. Puncture site dressed with band aid, Patient tolerated well. Single stick, clear fluid, pressure 16. . MDM: 09:01 Patient medically screened. rn 10:14 ED course: Pt states head really hurts, told her would recommend LP if head hurts and rn given kidney infection. Will perform LP, patient states ok and consented. . 12:25 Differential diagnosis: pyelonephritis, UTI. Data reviewed: vital signs, nurses notes, or rn test result(s), and as a result, I will admit patient. Counseling: I had a detailed discussion with the patient and/or guardian regarding: the historical points, exam findings, and any diagnostic results supporting the discharge/admit diagnosis, lab results, the need for further work-up and treatment in the hospital. ED course: Pt states does not feel better, CSF negative, 16k wbc, will admit given worsening symptoms, and patient not feeling better. Also concerned that patient not able to obtain her abx, as patient states she does not have a way to pharmacy or someone to take her. . 12/04 09:03 Order name: CBC with Diff; Complete Time: 09:39 rn 12/04 09:03 Order name: Basic Metabolic Panel; Complete Time: 09:52 rn 12/04 09:03 Order name: Lactate; Complete Time: 09:52 rn 12/04 09:03 Order name: Procalcitonin; Complete Time: 10:08 rn 12/04 10:41 Order name: CSF Bacterial Antigens (tube 1) rn 12/04 10:41 Order name: Csf Culture rn 12/04 10:41 Order name: Fluid Cell Count,Body; Complete Time: 12:23 rn 12/04 10:41 Order name: Spinal Fluid Profile; Complete Time: 12:23 rn 12/04 10:43 Order name: Urine Dipstick--Ancillary (enter results); Complete Time: 11:03 12/04 10:43 Order name: Urine --Ancillary (enter results); Complete Time: 11:03 12/04 13:16 Order name: CONS Pharmacy Consult EDMS 12/04 09:03 Order name: IV Start; Complete Time: 09:24 rn 12/04 10:41 Order name: LP Consents; Complete Time: 10:44 rn 12/04 10:41 Order name: LP Setup; Complete Time: 10:44 rn 12/04 13:16 Order name: Regular EDMS Administered Medications: Drug: NS 0.9% 1000 ml Route: IV; Rate: 1000 ml; Site: right antecubital; em 11:30 Follow up: IV Status: Completed infusion; IV Intake: 1000ml em : Drug: [place] 5 mg-325 mg 1 tabs Route: PO; em 11:23 Follow up: Response: No adverse reaction; Pain is unchanged, physician notified; RASS: em Drowsy (-1) 11:07 Drug: Reglan 10 mg Route: IVP; Site: right antecubital; em 13:36 Follow up: Response: No adverse reaction em Disposition: 12/05/19 12:28 Hospitalization ordered by Femi Valdes for Inpatient Admission. Preliminary diagnosis is Acute pyelonephritis. - Bed requested for Telemetry/MedSurg (Inpatient). - Status is Inpatient Admission. em - Condition is Stable. - Problem is new. - Symptoms have worsened. Signatures: Dispatcher [employer] Linda Briseno RN RN dw Javy Nance RN RN em David Bell MD MD rn Hall, Patricia, RN RN ph Corrections: (The following items were deleted from the chart) 14:36 12:28 Hospitalization Ordered by Femi Valdes MD for Inpatient Admission. dw Preliminary diagnosis is Acute pyelonephritis. Bed requested for Telemetry/MedSurg (Inpatient). Status is Inpatient Admission. Condition is Stable. Problem is new. Symptoms have worsened. rn 15:30 14:36 12/05/2019 12:28 Hospitalization Ordered by Femi Valdes MD for Inpatient em Admission. Preliminary diagnosis is Acute pyelonephritis. Bed requested for Telemetry/MedSurg (Inpatient). Status is Inpatient Admission. Condition is Stable. Problem is new. Symptoms have worsened. dw
[2019-12-05] MEDS ORDERED: ONDANSETRON 4 MG/2 ML VIAL IV PRN (13:12)
[2019-12-05] MEDS ORDERED: MORPHINE 2 MG/ML SYR IV PRN (13:12)
--- NOTE | 2019-12-05 15:34 | P.HP ---
Certification for Inpatient Patient admitted to: Observation With expected LOS: <2 Midnights Practitioner: I am a practitioner with admitting privileges, knowledge of patient current condition, hospital course, and medical plan of care. Services: Services provided to patient in accordance with Admission requirements found in Title 42 Section 412.3 of the Code of Federal Regulations Patient History Date of Service: 12/05/19 (Hospitalist) Reason for admission: Pyelonephritis History of Present Illness: Patient is 34 years of age was evaluated in the emergency room yesterday d ischarged home on Cipro patient has no insurance no awake a little was unable to get her prescription and a back in the emergency room as been complaining of 2 day history of frequency dysuria hematuria headaches and left flank pain no other medical issues patient smokes denies alcohol or drug abuse currently she is complaining of severe headaches puncture was also done Allergies alprazolam [From Xanax] Allergy (Severe, Verified 05/20/12 08:54) seizure - Past Medical/Surgical History Past Medical History: Reviewed- Non-Contributory Past Surgical History: Reviewed- Non-Contributory Review of Systems General: Weakness Gastrointestinal: Nausea, Abdominal Pain Genitourinary: Dysuria, Frequency, Urgency, Hematuria Physical Examination - Vital Signs Temperature: 97.8 F Blood Pressure: 111/79 Pulse: 91 Respirations: 18 Pulse Ox (%): 100 - Physical Exam General: Alert, Oriented x3, Mild distress Neck: Supple Respiratory: Clear to auscultation bilaterally Cardiovascular: No edema, Regular rate/rhythm Gastrointestinal: Normal bowel sounds, Soft and benign (Patient has left flank tenderness) Musculoskeletal: No clubbing, No warmth Integumentary: No breakdown Neurological: Normal speech, Normal strength at 5/5 x4 extr - Studies Laboratory Data (last 24 hrs) 12/05/19 09:20: Sodium 128 L, Potassium 4.0, BUN 5 L, Creatinine 0.79, Glucose 106 12/05/19 09:20: WBC 16.1 H, Hgb 12.0, Hct 35.8 L, Plt Count 191 Microbiology Data (last 24 hrs): 12/05/19 10:38 Cerebral Spinal Fluid CSF Bacterial Antigens (Tube 1) - Final 12/05/19 10:38 Cerebral Spinal Fluid Gram Stain - Final Assessment and Plan - Problems (Diagnosis) (1) Pyelonephritis Current Visit: Yes Status: Acute Plan: Patient is 34 years of age admitted admitted with left flank plane frequency dysuria hematuria there is no evidence of meningitis patient had a lumbar puncture done white count is mildly elevated urinalysis positive for infection CT scan done yesterday suggestive of for pyelonephritis admit patient for observation start on IV Rocephin pain relief patient has no insurance no transportation unable to get her medications yesterday from the pharmacy vital signs stable cultures ordered - Advance Directives Does patient have a Living Will: No Does patient have a Durable POA for Healthcare: No
[2019-12-05 15:42] VITALS: O2SAT 99
[2019-12-05] MEDS: HYDROCODONE/APAP 5/325 MG TAB PO PRN ×2 (16:14→21:50)
[2019-12-05] MEDS: CEFTRIAXONE/SWI 1gm 1 GM/10 ML SYR IVP SCH (16:14)
[2019-12-05] MEDS: NA CHLORIDE 0.9% 1,000 ML IV SCH (16:14)
[2019-12-05 16:24] VITALS: BMI 19.5
[2019-12-06] MEDS: NA CHLORIDE 0.9% 1,000 ML IV SCH (02:27)
[2019-12-06] MEDS: HYDROCODONE/APAP 5/325 MG TAB PO PRN ×2 (02:27→16:44)
[2019-12-06 04:54] LABS: Basophils % 0.2 % (0-1.3); Lymphocytes % 22.3 % (15.3-44.8); MPV 8.6 fL (7.6-11.3); RBC Red Blood Cell Count 3.53 M/uL (3.86-4.86)
[2019-12-06 05:07] LABS: ALT/SGPT 47 U/L (12-78); AST/SGOT 20 U/L (15-37); Albumin 2.5 g/dL (3.4-5.0); Alkaline Phosphatase 66 U/L (45-117); BUN Blood Urea Nitrogen 6 mg/dL (7-18); Bicarbonate 25 mmol/L (21-32); Bilirubin Total 0.2 mg/dL (0.2-1.0); Glucose Level 101 mg/dL (74-106); Potassium 3.9 mmol/L (3.5-5.1); Sodium Level 139 mmol/L (136-145)
[2019-12-06] MEDS ORDERED: NA CHLORIDE 0.9% 500 ML IV ONE (05:07)
[2019-12-06] MEDS: ACETAMIN/CAFFEINE/BUTALB TAB PO PRN ×2 (05:22→08:55)
[2019-12-06] MEDS: CEFTRIAXONE/SWI 1gm 1 GM/10 ML SYR IVP SCH (08:51)
[2019-12-06] MEDS ORDERED: SUMATRIPTAN SUCC 6MG/0.5ML VIAL SQ ONE (11:24)
--- NOTE | 2019-12-06 11:48 | P.PN ---
Subjective Date of Service: 12/06/19 Chief Complaint: Pyelonephritis Subjective: No new changes, No C/O voiced Review of Systems Gastrointestinal: Nausea Physical Examination - Vital Signs Temperature: 97.1 F Blood Pressure: 89/52 Pulse: 69 Respirations: 20 Pulse Ox (%): 98 - Physical Exam General: Alert, In no apparent distress, Oriented x3 HEENT: Atraumatic, Normocephalic, PERRLA Neck: Supple, 2+ carotid pulse no bruit Respiratory: Clear to auscultation bilaterally, Normal air movement Cardiovascular: Normal pulses, Regular rate/rhythm Gastrointestinal: Normal bowel sounds, Soft and benign, Tenderness Musculoskeletal: No clubbing, No swelling - Studies Microbiology Data (last 24 hrs): 12/05/19 10:38 Cerebral Spinal Fluid Gram Stain - Final 12/05/19 10:38 Cerebral Spinal Fluid CSF Bacterial Antigens (Tube 1) - Final Assessment And Plan Physician Review: Patient Assessed, Agree with Above Assessment and Plan Physician Review Additional Text: # UTI with left pyelonephritis-noted on CT imaging Will obtain renal sonogram to further evaluate urinary colelcting systems given abnormally rotated left kidney Follow pending urine culture Continue Rocephin Continue p.r.n. pain medication Continue gentle IV fluid hydration #Headaches-meningitis ruled out with negative CSF analysis, no growth on culture all Continue p.r.n. pain meds. Will do Imitrex x1 for presumed migraine today Will do CT head to rule out intracranial abnormality #Dispo- possible home in 1-2 days Time Spent Managing PTS Care (In Minutes): 35
[2019-12-06] MEDS ORDERED: Ringers Lactate 1,000 ML IV SCH (12:00)
--- NOTE | 2019-12-06 12:23 | RAD REPORT ---
EXAM DESCRIPTION: CT - Head Brain Wo Cont - 12/06/2019 12:13 pm CLINICAL HISTORY: headache Headache, drowsiness COMPARISON: HEAD BRAIN W O CONTRAST dated 10/25/2008 TECHNIQUE: All CT scans are performed using dose optimization technique as appropriate and may inclu de automated exposure control or mA/KV adjustment according to patient size. FINDINGS: No intracranial hemorrhage, hydrocephalus or extra-axial fluid collection.No areas of brai n edema or evidence of midline shift. The paranasal sinuses and mastoids are clear. The calvarium is intact. IMPRESSION: No acute intracranial abnormality.
--- NOTE | 2019-12-06 12:48 | RAD REPORT ---
EXAM DESCRIPTION: US - Renal Ultrasound-Complete - 12/06/2019 12:31 pm CLINICAL HISTORY: left renal enhancement Flank pain COMPARISON: Angio Aorta For Dissection dated 12/04/2019 FINDINGS: Both kidneys are normal in size, shape and echotexture. The right kidney measures 11.3 x 4.2 x 3.4 cm. No hydronephrosis, focal mass or perinephric fluid. The left kidney measures 14.0 x 5.0 x 3.6 cm. No hydronephrosis. Trace perinephric fluid is seen with echogenic area in the upper pole of the left kidney with loss of corticomedullary differentiation. The urinary bladder is incompletely distended without gross abnormality seen. IMPRESSION: Upper pole left kidney demonstrates echogenic area with trace perinephric fluid suspicio us for pyelonephritis. No significant hydronephrosis bilaterally.
[2019-12-06 18:11] VITALS: BP 103/56; TEMP 98.1
== END 2019-12-06 17:45 | disposition left against medical advice (07) | DRG 690 ==
LOC: SUPCPDRO 08:59 → ER 08:59 → OBSVTOIN 13:12 → ERHOLD 13:12 → 2ND 15:17
PROVIDERS: ADMIT Internal Medicine Sleep Medicine; ATTEND Family Medicine
PROC: 009U3ZX Drainage of Spinal Canal, Percutaneous Approach, Diagnostic (ICD-10-PCS; principal; 2019-12-05)
DX: N10 Acute pyelonephritis (principal); Z88.8 Allergy status to other drugs, medicaments and biological substances
CPT/HCPCS: 36415; 62270; 70450; 76770; 80048; 80053; 81003; 81025; 82945; 83605; 83735; 84145; 84157; 85025; 86403; 87040; 87070; 87086; 87088; 89050; 96361; 96374; 99285; J0696; J2765; J3030; J7030; J7040; J7120; U0002

== ENCOUNTER 2019-12-07 22:43 | Emergency (ER) | payer SELFPAY ==
--- OUTSIDE RECORDS SUMMARY | 2019-12-07 22:46 | XMS REPORT | Continuity of Care Document ---
:1985 Author Organization [facility] t Address [address] [place] [address] Care Team Providers Name Role Phone Pob1, [facility] Attending Clinician Unavailable Problems This patient has no known problems. Allergies, Adverse Reactions, Alerts This patient has no known allergies or adverse reactions. Medications This patient has no known medications. Procedures This patient has no known procedures. Encounters Start End Encounter Admission Attending Care Care Encounter Source Date/Time Date/Time Type Type Clinicians Facility Department ID 2019-10-01 2019-10-01 Telephone Pob1, Acute [facility] [id number] 00:00:00 00:00:00 [facility] [id number] [place] [id number] [place] [id number] nal [address] 2018-12-18 2018-12-18 Emergency E [facility] [address] [facility] 06:20:00 06:20:00 Results This patient has no known results.
[2019-12-07] MEDS ORDERED: DIPHENHYDRAMINE 50 MG/ML VIAL ONE (23:49)
[2019-12-07] MEDS ORDERED: NA CHLORIDE 0.9% 1,000 ML ONE (23:49)
[2019-12-07] MEDS ORDERED: METOCLOPRAMIDE 10 MG/2mL INJ ONE (23:49)
[2019-12-07] MEDS ORDERED: NA CHLORIDE 0.9% 100 ML IV ONE (23:49)
[2019-12-07 23:56] LABS: Urine Blood 2+ (NEG); Urine Glucose NEGATIVE (NEG); Urine Protein NEGATIVE (NEG); Urine Specific Gravity 1.025 (1.005-1.030)
[2019-12-08 00:42] LABS: Potassium 4.1 mmol/L (3.5-5.1)
[2019-12-08] MEDS ORDERED: KETOROLAC 30 MG/ML INJ ONE (00:59)
[2019-12-08 01:21] LABS: Absolute Lymphocytes (CBC) 2.4 K/uL (0.7-4.9); Basophils % 0.3 % (0-1.3); Hematocrit 35.3 % (36.0-45.0); Lymphocytes % 30.5 % (15.3-44.8); MPV 8.6 fL (7.6-11.3); RBC Red Blood Cell Count 3.95 M/uL (3.86-4.86)
--- NOTE | 2019-12-08 05:25 | EDPHYS ---
Physician Documentation [facility] Name: Shani Delgado Age: 34 yrs Sex: Female : 1985 Arrival Date: 12/07/2019 Time: 22:49 Bed 6 Private MD: ED Physician Amandeep Shields HPI: 12/06 23:35 This 34 yrs old Female presents to ER via Ambulatory with complaints of mh7 KIDNEY INFECTION, Headache. 23:35 The patient complains of pain to the top of head and right occipital area. The patient mh7 describes the headache as intermittent, throbbing, waxing and waning. Onset: The symptoms/episode began/occurred 1 week(s) ago. 23:36 Associated signs and symptoms: Pertinent positives: nausea, Pertinent negatives: mh7 altered mental status, dizziness, fever, malaise, neck stiffness, paresthesias, Photophobia rash, sinus congestion, sinus tenderness, vision changes, vision loss, vomiting, weakness, vertigo. Severity of symptoms: At its worst the pain was moderate, 7 day(s) ago, in the emergency department the pain has improved, mildly. Headache History: The patient has had previous headaches and this one is similar to previous episodes. The symptoms are alleviated by nothing. the symptoms are aggravated by nothing. The patient has been recently seen at the [facility] Emergency Department, this week, The patient has been recently been admitted at [facility], Left AMA yesterday. Historical: - Allergies: 23:04 Alprazolam; mg2 - Home Meds: 23:04 Cipro Oral [Active]; mg2 - PMHx: 23:04 hypotension; mg2 - PSHx: 23:04 Tubal ligation; mg2 - Immunization history:: Flu vaccine is not up to date. - Social history:: Smoking status: Patient reports the use of cigarette tobacco products, Patient uses street drugs, marijuana, Patient/guardian denies using alcohol. ROS: 23:36 Constitutional: Negative for fever, chills, and weight loss, Eyes: Negative for injury, mh7 pain, redness, and discharge, ENT: Negative for injury, pain, and discharge, Neck: Negative for injury, pain, and swelling, Cardiovascular: Negative for chest pain, palpitations, and edema, Respiratory: Negative for shortness of breath, cough, wheezing, and pleuritic chest pain. 23:36 MS/Extremity: Negative for injury and deformity, Skin: Negative for injury, rash, and discoloration, Psych: Negative for depression, anxiety, suicide ideation, homicidal ideation, and hallucinations, Allergy/Immunology: Negative for hives, rash, and allergies, Endocrine: Negative for neck swelling, polydipsia, polyuria, polyphagia, and marked weight changes, Hematologic/Lymphatic: Negative for swollen nodes, abnormal bleeding, and unusual bruising. 23:36 Abdomen/GI: 23:36 Back: Positive for flank pain, on the left. 23:36 : Positive for flank pain. Exam: 23:42 Constitutional: This is a well developed, well nourished patient who is awake, alert, mh7 and in no acute distress. Head/Face: Normocephalic, atraumatic. Eyes: Pupils equal round and reactive to light, extra-ocular motions intact. Lids and lashes normal. Conjunctiva and sclera are non-icteric and not injected. Cornea within normal limits. Periorbital areas with no swelling, redness, or edema. ENT: Nares patent. No nasal discharge, no septal abnormalities noted. Tympanic membranes are normal and external auditory canals are clear. Oropharynx with no redness, swelling, or masses, exudates, or evidence of obstruction, uvula midline. Mucous membranes moist. Neck: Trachea midline, no thyromegaly or masses palpated, and no cervical lymphadenopathy. Supple, full range of motion without nuchal rigidity, or vertebral point tenderness. No Meningismus. Chest/axilla: Normal chest wall appearance and motion. Nontender with no deformity. No lesions are appreciated. Cardiovascular: Regular rate and rhythm with a normal S1 and S2. No gallops, murmurs, or rubs. Normal PMI, no JVD. No pulse deficits. Respiratory: Lungs have equal breath sounds bilaterally, clear to auscultation and percussion. No rales, rhonchi or wheezes noted. No increased work of breathing, no retractions or nasal flaring. 23:42 Abdomen/GI: Soft, non-tender, with normal bowel sounds. No distension or tympany. No guarding or rebound. No evidence of tenderness throughout. 23:42 Skin: Warm, dry with normal turgor. Normal color with no rashes, no lesions, and no evidence of cellulitis. MS/ Extremity: Pulses equal, no cyanosis. Neurovascular intact. Full, normal range of motion. Neuro: Awake and alert, GCS 15, oriented to person, place, time, and situation. Cranial nerves II-XII grossly intact. Motor strength 5/5 in all extremities. Sensory grossly intact. Cerebellar exam normal. Normal gait. Psych: Awake, alert, with orientation to person, place and time. Behavior, mood, and affect are within normal limits. 23:42 Back: pain, is absent, ROM is normal, normal spinal alignment noted, CVA tenderness, that is mild, is noted on the left, muscle spasm, is not present. 23:42 : CVA tenderness, on the left, Bladder: is normal. Vital Signs: 23:01 BP 119 / 84; Pulse 80; Resp 18; Temp 98.3; Pulse Ox 100% on R/A; Weight 52.16 kg; mg2 Height 5 ft. 4 in. (162.56 cm); 12/07 00:15 BP 120 / 68; Pulse 78; Resp 18; Pulse Ox 98% ; ea 05:17 BP 101 / 68; Pulse 83; Resp 16; Temp 97.6; Pulse Ox 100% ; ea 12/06 23:01 Body Mass Index 19.74 (52.16 kg, 162.56 cm) mg2 Huong Coma Score: 05:20 Eye Response: spontaneous(4). Verbal Response: oriented(5). Motor Response: obeys mh7 commands(6). Total: 15. MDM: 12/06 23:30 Patient medically screened. [facility] 12/07 05:20 Differential diagnosis: cluster headache, hypoglycemia, hyponatremia, migraine, tension mh7 headache, nonspecific headache. Data reviewed: vital signs, nurses notes, old medical records, lab test result(s), CBC, electrolytes, urinalysis. Data interpreted: surveillance monitor: rate is 83 beats/min, rhythm is normal sinus rhythm, regular, Interpretation: normal rate, normal rhythm, Pulse oximetry: on room air is 100 %. Interpretation: normal. Counseling: I had a detailed discussion with the patient and/or guardian regarding: the historical points, exam findings, and any diagnostic results supporting the discharge/admit diagnosis, lab results, the need for outpatient follow up, to return to the emergency department if symptoms worsen or persist or if there are any questions or concerns that arise at home. 12/06 23:26 Order name: Urine Dipstick--Ancillary (enter results); Complete Time: 00:11 [facility] 12/06 23:26 Order name: Urine --Ancillary (enter results); Complete Time: 00:11 [facility] 12/06 23:32 Order name: CBC with Diff; Complete Time: 01:30 [facility] 12/06 23:32 Order name: Basic Metabolic Panel; Complete Time: 00:48 [facility] 12/06 23:32 Order name: Saline Lock; Complete Time: 23:50 [facility] 12/07 00:46 Order name: Labs - recollect needed: a lavender top, "clotted"; Complete Time: 01:08 sg Administered Medications: 12/06 23:50 Drug: NS 0.9% 1000 ml Route: IV; Rate: 1000 ml; Site: right antecubital; ea 12/07 05:55 Follow up: Response: No adverse reaction; IV Status: Completed infusion; IV Intake: ea 1000ml 12/06 23:58 Drug: Benadryl 50 mg Route: IVP; Site: right antecubital; ea 12/07 02:01 Follow up: Response: No adverse reaction mg2 00:02 Drug: Reglan 10 mg Route: IVP; Site: right antecubital; ea 02:01 Follow up: Response: No adverse reaction mg2 01:12 Not Given (Patient Refused): TORadol 30 mg IVP once ea Disposition: 12/08/19 05:24 Discharged to Home. Impression: Headache, Low back pain, Flank Pain. - Condition is Stable. - Discharge Instructions: Flank Pain, [id number], General Headache Without Cause, [id number]. - Medication Reconciliation Form, Thank You Letter, Antibiotic Education, Prescription Opioid Use form. - Follow up: Private Physician; When: 1 - 2 days; Reason: Worsening of condition, Recheck today's complaints, Re-evaluation by your physician. Follow up: Saeid Spangler MD; When: 1 - 2 days; Reason: Worsening of condition, Recheck today's complaints. - Problem is an ongoing problem. - Symptoms have improved. Signatures: Dispatcher [employer] EDJoaquín Todd RN RN Justina Aquino RN RN ea Gardose, Michele, RN RN mg2 Amandeep Shields MD MD mh7 Corrections: (The following items were deleted from the chart) 06:50 05:24 12/08/2019 05:24 Discharged to Home. Impression: Headache; Low back pain; Flank mg2 Pain. Condition is Stable. Forms are Medication Reconciliation Form, Thank You Letter, Antibiotic Education, Prescription Opioid Use. Follow up: Private Physician; When: 1 - 2 days; Reason: Worsening of condition, Recheck today's complaints, Re-evaluation by your physician. Follow up: Saeid Spangler; When: 1 - 2 days; Reason: Worsening of condition, Recheck today's complaints. Problem is an ongoing problem. Symptoms have improved. mh7
--- NOTE | 2019-12-08 05:25 | ER ---
Nurse's Notes [facility] Name: Shani Delgado Age: 34 yrs Sex: Female : 1985 Arrival Date: 12/07/2019 Time: 22:49 Bed 6 Private MD: Diagnosis: Headache;Low back pain;Flank Pain Presentation: 12/06 23:01 Chief complaint: Patient states: i was admitted for 3 days here and I left AMA mg2 yesterday. I am getting worse. My left kidney hurts, i caldera ve bad headache, blood in the urine and nausea for 6 days. Coronavirus screen: Proceed with normal triage. Patient denies a cough. Patient denies shortness of breath or difficulty breathing. Patient denies measured and/or subjective temperature greater than 100.4F prior to today's visit. Patient denies travel on a cruise ship or to a country the [facility] currently lists as an affected area. Patient denies contact with known and/or suspected case of COVID-19. Ebola Screen: No symptoms or risks identified at this time. Initial Sepsis Screen: Does the patient meet any 2 criteria? No. Patient's initial sepsis screen is negative. Does the patient have a suspected source of infection? No. Patient's initial sepsis screen is negative. Risk Assessment: Do you want to hurt yourself or someone else? Patient reports no desire to harm self or others. Onset of symptoms was November 2019. 23:01 Method Of Arrival: Ambulatory mg2 23:01 Acuity: MACIEL 3 mg2 Triage Assessment: 23:04 Headache History: The patient has had previous headaches. General: Appears in no mg2 apparent distress. comfortable, Behavior is calm, cooperative. Pain: Complains of pain in left flank Pain currently is 8 out of 10 on a pain scale. Pain began gradually, Also complains of. EENT: No signs and/or symptoms were reported regarding the EENT system. Neuro: Level of Consciousness is awake, alert, obeys commands, Oriented to person, place, time, situation. Neuro: Reports headache. Cardiovascular: Capillary refill < 3 seconds Patient's skin is warm and dry. Respiratory: Airway is patent Respiratory effort is even, unlabored, Respiratory pattern is regular, symmetrical. GI: Reports nausea. : Reports pain in left flank(s), hematuria. Derm: Skin is intact, is healthy with good turgor, Skin is pink, warm \\T\\ dry. normal. Musculoskeletal: Circulation, motion, and sensation intact. Capillary refill < 3 seconds. Historical: - Allergies: 23:04 Alprazolam; mg2 - Home Meds: 23:04 Cipro Oral [Active]; mg2 - PMHx: 23:04 hypotension; mg2 - PSHx: 23:04 Tubal ligation; mg2 - Immunization history:: Flu vaccine is not up to date. - Social history:: Smoking status: Patient reports the use of cigarette tobacco products, Patient uses street drugs, marijuana, Patient/guardian denies using alcohol. Screenin:06 Abuse screen: Denies threats or abuse. Denies injuries from another. Nutritional mg2 screening: No deficits noted. Tuberculosis screening: No symptoms or risk factors identified. Fall Risk None identified. Assessment: 23:06 General: see triage assessment. mg2 12/07 00:33 Reassessment: Pt refusing IV fluids states "my arm feels like I have a needle still in ea my arm, I do not want anymore fluids! My sister is an OR tech and she said my arm should not feel like there is anything there!" IV fluids paused, pt refused assessment of IV site states " do not touch it!". Pt refused IV catheter removal states " I do not want it taken out, it doesn't burn it just feels like there is something in my arm!" while pointing at IV. Provider notified of fluids paused, awaiting on lab results. 01:18 Reassessment: patient is uncooperative causing delay of treatment. mg2 01:25 Reassessment: Pt yelling states " I don't understanding why the saline is not connected ea to my IV". Pt reminded of refusal of IV fluids. Pt states " I need the IV fluids, I've had heat stroke before" IV fluids restarted. Provider notified. 02:19 Reassessment: Patient and/or family updated on plan of care and expected duration. Pain ea level reassessed. Pt resting with eyes closed, respirations even and unlabored. Chest expansions even and symmetrical. 03:06 Reassessment: Pt resting with eyes closed, respirations even and unlabored. Chest ea expansions even and symmetrical. No s/s of pain or discomfort noted at this time. 04:00 Reassessment: Patient and/or family updated on plan of care and expected duration. Pain ea level reassessed. Pt resting with eyes closed, respirations even and unlabored, chest expansions even and symmetrical. No s/s of pain or discomfort noted at this time. 05:10 Reassessment: patient still sleeping on bed. mg2 05:25 Reassessment: patient for dc. just waiting for her to call her ride. mg2 05:44 Reassessment: dc papers signed by the patient. said she is waiting for her ride to come mg2 in 30 mins. 06:38 Reassessment: Patient and/or family updated on plan of care and expected duration. Pain ea level reassessed. Discharge instruction given to patient, verbalized the understanding of instruction. Pt awaiting on ride home. Vital Signs: 12/06 23:01 BP 119 / 84; Pulse 80; Resp 18; Temp 98.3; Pulse Ox 100% on R/A; Weight 52.16 kg; mg2 Height 5 ft. 4 in. (162.56 cm); 12/07 00:15 BP 120 / 68; Pulse 78; Resp 18; Pulse Ox 98% ; ea 05:17 BP 101 / 68; Pulse 83; Resp 16; Temp 97.6; Pulse Ox 100% ; ea 12/06 23:01 Body Mass Index 19.74 (52.16 kg, 162.56 cm) mg2 Byron Coma Score: 05:20 Eye Response: spontaneous(4). Verbal Response: oriented(5). Motor Response: obeys mh7 commands(6). Total: 15. ED Course: 12/06 22:49 Patient arrived in ED. es 22:59 Amandeep Shields MD is Attending Physician. mh7 23:01 Suraj Woo, [place] is Primary Nurse. mg2 23:03 Triage completed. mg2 23:04 Arm band placed on. mg2 23:06 Patient has correct armband on for positive identification. mg2 23:06 No provider procedures requiring assistance completed. mg2 23:50 Inserted saline lock: 20 gauge in right antecubital area, using aseptic technique. mt Blood collected. 12/07 05:23 Saeid Spangler MD is Referral Physician. mh7 05:25 IV discontinued, intact, bleeding controlled, No redness/swelling at site. Pressure mg2 dressing applied. Administered Medications: 12/06 23:50 Drug: NS 0.9% 1000 ml Route: IV; Rate: 1000 ml; Site: right antecubital; ea 12/07 05:55 Follow up: Response: No adverse reaction; IV Status: Completed infusion; IV Intake: ea 1000ml 12/06 23:58 Drug: Benadryl 50 mg Route: IVP; Site: right antecubital; ea 12/07 02:01 Follow up: Response: No adverse reaction mg2 00:02 Drug: Reglan 10 mg Route: IVP; Site: right antecubital; ea 02:01 Follow up: Response: No adverse reaction mg2 01:12 Not Given (Patient Refused): TORadol 30 mg IVP once ea Intake: 05:55 IV: 1000ml; Total: 1000ml. Outcome: 05:24 Discharge ordered by . [facility] 06:39 Discharge instructions given to patient, Instructed on discharge instructions, follow ea up and referral plans. Demonstrated understanding of instructions, follow-up care. 06:48 Discharged to home ambulatory. mg2 06:48 Condition: stable 06:50 Patient left the ED. mg2 Signatures: Sonia Juarez Moriah mt Antunez, Elena RN RN Suraj Veras RN RN Amandeep Rae MD MD mh7
[2019-12-08 07:13] VITALS: BP 101/68; TEMP 97.6; O2SAT 100
== END 2019-12-08 06:50 | disposition home or self-care (01) ==
LOC: ER 22:43
DX: R51 Headache (principal); M54.5 Low back pain; R10.9 Unspecified abdominal pain; F17.210 Nicotine dependence, cigarettes, uncomplicated
CPT/HCPCS: 36415; 80048; 81003; 81025; 85025; 96361; 96374; 96375; 99283; J1200; J2765; J7030